=== PATIENT | male | born 2000 | race Caucasian/White ===

== ENCOUNTER 2018-07-22 21:37 | Emergency (ER) | payer SELFPAY ==
[~2018-07-22] VITALS: Ht 185.4 cm; Wt 83.9 kg
--- OUTSIDE RECORDS SUMMARY | 2018-07-22 21:42 | XMS REPORT | Continuity of Care Document ---
Author Organization Unknown Address Unknown Allergies There is no data. Medications There is no data. Problems There is no data. Procedures There is no data. Results There is no data. Encounters ACCT No. Visit Date/Time Discharge Status Pt. Type Provider Facility Loc./Unit Complaint [id number] 06/25/2018 13:00:00 06/25/2018 23:59:59 CLS Outpatient [facility]
[2018-07-22 21:44] VITALS: BP 167/69
[2018-07-22] MEDS ORDERED: IBUPROFEN 800 MG (MOTRIN) TAB PO STA (21:50)
--- NOTE | 2018-07-22 21:54 | ED Upper Extremity ---
General Chief Complaint: Trauma-Non Activation Stated Complaint: RT ARM INJ Source: patient History of Present Illness Date Seen by Provider: July 22, 2018 Time Seen by Provider: 21:40 Initial Comments 17 yo M presenting with right elbow pain after having a Bull step on it around 1830 tonight. He has pain and swelling in it. He has not taken anything for the pain or done anything for it. He came to the ED once he got back to [place]. He has had a fracture in the elbow when he was about [age] years old. He denies any other injuries. He had some initial numbness to the pinky finger right after the injury but that has quickly resolved and is back to normal now. Onset: this evening Pain/Injury Location: right elbow Method of Injury: direct blow (gomez bull stepped on his elbow) Modifying Factors: Worse With Movement Allergies and Home Medications Allergies Coded Allergies: Penicillins (Verified Allergy, Unknown, 07/22/18) amoxicillin (Verified Allergy, Unknown, 07/22/18) Patient Home Medication List Home Medication List Reviewed: Yes Review of Systems Constitutional: No chills, No fever EENTM: no symptoms reported Respiratory: no symptoms reported Cardiovascular: no symptoms reported Gastrointestinal: no symptoms reported Genitourinary: no symptoms reported Musculoskeletal: see HPI, joint pain (right elbow), joint swelling (right elbow ) Skin: No change in color Psychiatric/Neurological: See HPI, Tingling (right pinky finger initially after injury that quickly resolved) Past E[place]kqi-Qqerlc-Ovucay Hx Past Med/Social Hx: Reviewed Nursing Past Med/Soc Hx Patient Social History Recent Foreign Travel: No Contact w/Someone Who Travel: No Past Medical History Surgeries: No Respiratory: No Cardiac: No Neurological: No Genitourinary: No Gastrointestinal: No Musculoskeletal: No Endocrine: No HEENT: No Physical Exam Vital Signs Vital Signs - First Documented Capillary Refill : Height, Weight, BMI Height: '" Weight: lbs. oz. kg; BMI Method: General Appearance: WD/WN, no apparent distress Elbow/Forearm: Right, limited ROM (mild limited ROM due to the pain and swelling to right elbow), pain (right elbow), swelling (joint effusion to the right elbow ) Neurologic/Psychiatric: no motor/sensory deficits, alert, normal mood/affect, oriented x 3 Skin: normal color, warm/dry Progress/Results/Core Measures Results/Orders My Orders Orders - KIMBERLEE AGUIAR MD Ibuprofen Tablet (Motrin Tablet) (07/22/18 21:50) Ice: Apply To Affected Area (07/22/18 21:51) Elbow 3 View Right (07/22/18 21:51) Vital Signs/I&O 07/22/18 07/22/18 07/22/18 21:44 21:44 22:54 Temp 97.8 97.8 97.8 Pulse 102 102 102 Resp 18 18 18 B/P (MAP) 167/69 (101) 167/69 Pulse Ox 97 97 97 Progress Progress Note : Progress Note check xrays of the right elbow to evaluate for possible fracture or dislocation of the elbow. Ice and elevate for treatment. Ibuprofen for pain and inflammation while waiting on imaging Diagnostic Imaging Diagonstic Imaging: Xray Plain Films/CT/US/NM/MRI: elbow Comments NAME: MIKA MCKEE MED REC#: [id number] PT STATUS: REG ER : 2000 PHYSICIAN: KIMBERLEE AGUIAR MD ADMIT DATE: 07/22/18/ER FS Signed Date of Exam:07/22/18 ELBOW 3 VIEW RIGHT INDICATION: Right elbow pain post injury AP, oblique, and lateral views of the right elbow are obtained. No fracture or acute bony abnormality seen. IMPRESSION: Negative right elbow. Dictated by: Dictated on workstation # [id number] Dict: 07/22/182205 Trans: 07/22/182223 KEVIN [id number] Interpreted by: LONG MCDANIEL MD Electronically signed by: LONG MCDANIEL MD 07/22/182223 Reviewed: Reviewed by Me (and radiologist reading) Departure Impression Primary Impression: Contusion of right elbow, initial encounter Additional Impression: Effusion of elbow joint, right Disposition: 01 HOME, SELF-CARE Condition: Stable Departure-Patient Inst. Decision time for Depature: 22:47 Referrals: NO,LOCAL PHYSICIAN (PCP) Primary Care Physician Patient Instructions: Contusion (DC), Elbow Sprain (DC) Add. Discharge Instructions: Use ice 15-20 minutes every few hours to help with swelling and pain Ibuprofen or Naproxen to help with pain and inflammation. Limit use of your elbow and arm over the next 5-7 days to let it rest and heal. If it is worsening instead of improving then check with clinic or Orthopedics to have it re-evaluated. All discharge instructions reviewed with patient and/or family. Voiced understanding. Work/School Note: School/Childcare Release Date Seen in the Emergency Department: July 22, 2018 Time Dismissed from Emergency Department: 22:49 Return to School: July 29, 2018 Restrictions: No Sports-Until Released Other Restrictions Listed Below: No [place] or Sports for 1 week. May resume [place] on 07/29/2018 KIMBERLEE AGUIAR MD July 22, 2018 21:54
--- NOTE | 2018-07-22 22:10 | Diagnostic Imaging Report ---
INDICATION: Right elbow pain post injury AP, oblique, and lateral views of the right elbow are obtained. No fracture or acute bony abnormality seen. IMPRESSION: Negative right elbow. Dictated by: Dictated on workstation # [id number]
== END 2018-07-22 22:54 | disposition home or self-care (01) ==
LOC: ER FS 21:38
DX: S50.01XA Contusion of right elbow, initial encounter (principal); Z88.0 Allergy status to penicillin; W55.82XA Struck by other mammals, initial encounter
CPT/HCPCS: 73080